=== PATIENT | female | born 1975 | race Caucasian/White ===

== ENCOUNTER → 2016-11-08 | Outpatient (CLI) | payer BC ==
[~2016-11-08] MED LIST: BIOTCAP PO; MULT-65 PO; OXYC1SOL5 PO; VENL75TA PO
--- NOTE | 2016-11-08 15:37 | EKG ---
Date Performed: 11/08/2016 Time Performed: 14:24:11 PTAGE: 41 years EKG: Sinus rhythm WITH SHORT CO INTERVAL BORDERLINE ECG NO PREVIOUS TRACING DOCTOR: Dany Neri Interpretating Date/Time 11/08/2016 15:35:31
== END ==
LOC: CPRE 14:09
PROVIDERS: ATTEND Obstetrics & Gynecology
DX: Z01.812 Encounter for preprocedural laboratory examination (principal); Z01.810 Encounter for preprocedural cardiovascular examination; N92.0 Excessive and frequent menstruation with regular cycle; D50.0 Iron deficiency anemia secondary to blood loss (chronic); R94.31 Abnormal electrocardiogram [ECG] [EKG]
CPT/HCPCS: 93005

== ENCOUNTER → 2016-11-13 | Day surgery (SDC) | payer BC ==
[~2016-11-13] VITALS: Ht 175.3 cm; Wt 57.5 kg
[~2016-11-13] MED LIST changes: +*morphine SULFATE 8 MG/ML PERIprocedure ONLY ONE; +ACETAMINOPHEN 1000 MG/100 ML VIAL IV SCH; +CHLORHEXIDINE GLUCONATE 2 % 1 PACK (2 CLOTHS) TOPICAL PRN; +CLINDAMYCIN 600 MG/NS 100 ML IV SCH; +DO NOT ADM ANY ANTICOAGULANT DRUGS PRN; +INSULIN HUMAN REGULAR 1,000 UNITS/10 ML VIAL SQ PRN; +KETOROLAC TROMETHAMINE 60 MG/2 ML (IM) VIAL IM ONE; +LACTATED RINGER'S 1000 ML IV PRN; +METOCLOPRAMIDE HCL 10 MG/2 ML VIAL IV PRN; +METOPROLOL TARTRATE 25 MG TAB PO PRN; +ONDANSETRON HCL 4 MG/2 ML VIAL IV PUSH ONE; -OXYC1SOL5 PO; +POVIDONE IODINE 5% (ANTISEPSIS KIT) 4 APPLICATIONS EACH NARE PRN; +PROPOFOL 200 MG/20 ML AMP IV ONE; +SODIUM CHLORID 0.9% 500 ML IV PRN; +SODIUM CHLORIDE 0.9% INJ 100 ML ONE; +fentaNYL CITRATE 250 MCG/5 ML AMP ONE; +oxyCODONE/ACETAMINOPHEN 5 MG/325 MG TAB ONE; +oxyCODONE/ACETAMINOPHEN 5 MG/325 MG TAB PO ONE
[2016-11-13 05:56] VITALS: BP 105/72; PULSE 66; RESP 16; TEMP 98.3; O2SAT 100
--- NOTE | 2016-11-13 08:26 | MH ---
cc: LANDON VEGA DATE OF ADMISSION: 11/13/2016 DATE OF 1975 ADMISSION DIAGNOSIS Menorrhagia with anemia. HISTORY OF PRESENT ILLNESS The patient is 41-year-old white female with a date of of 1975. She has had worsening menorrhagia over the last year. She has seen Dr. Breen for evaluation and developed anemia so severe she is requiring infusions. Her cycles are monthly, last for 8-10 days and goes up to 8 pads per day with minimal discomfort. Her pelvic ultrasound from 10/30/2016 showed a uterus that measured 9.7 cm. Her endometrial biopsy from 10/31/2016 was benign. She is now admitted for Novasure ablation. PAST MEDICAL HISTORY 1. She had with tubal July 13, 2015. 2. Her first was in 2009. MEDICATIONS Are: Vitamins. ALLERGIES PENICILLIN. TRANSFUSIONS None. SOCIAL HISTORY She is . Alcohol, tobacco and drugs are none. FAMILY HISTORY Noncontributory. PHYSICAL EXAMINATION GENERAL: This is a well-nourished, well-developed white female. VITAL SIGNS: Stable. HEENT: Exam is normal. CHEST: Clear. HEART: Regular rate. BREASTS: Symmetrical. ABDOMEN: BENIGN. PELVIC: Normal external genitalia and Bartholin's, urethral, and [place]'s. Vagina is normal. Cervix is normal. Uterus normal size and shape. Adnexa nonpalpable. ASSESSMENT As above. She is now admitted for hysteroscopy and Novasure ablation. While in the office I explained the procedures, the risks and complications and the patient would like to proceed. Also advised she may develop additional pathology and could require additional surgery in the future. The patient would like to proceed. MD GABE Retana/ROC /5:08 PM /8:22 AM CHRISTY
[2016-11-13 09:05] VITALS: BP 118/73; PULSE 66; RESP 20; TEMP 98.2; O2SAT 100
--- NOTE | 2016-11-13 13:36 | MP ---
cc: LANDON VEGA DATE OF SURGERY: 11/13/2016 PREOPERATIVE DIAGNOSIS: Menorrhagia with anemia. POSTOPERATIVE DIAGNOSIS: Menorrhagia with anemia. OPERATION: Hysteroscopy and NovaSure ablation. ANESTHESIA General LMA. ESTIMATED BLOOD LOSS: Less than 1 cc FLUIDS: The fluids are 1/2 liter crystalloid. OBJECTIVE FINDINGS Following the induction of adequate general LMA anesthesia the patient was prepped and draped supine on the operating table dorsal lithotomy position, in sterile fashion with the bladder being drained out, with catheterization. Exam under anesthesia revealed normal size shape anterior uterus, no adnexal masses. Heavy weighted speculum placed posterior fornix of the vagina. The anterior lip of the cervix grasped with tenaculum. Cervix sounded to 2.5 cm internal os and 9 at the fundus with the soft dilator. The cervix is dilated to #19 Hanks dilator. The NovaSure's wand was then deployed for a cavity length of 6.5 cm. The cavity width a 4.6 cm cms. The cavity test was then done and enabled. When complete the wand was withdrawn intact. The hysteroscope was passed confirmed a completion of the procedure, the cervix tenaculum sutured 2-0 chromic, all instruments were removed, all counts correct. The patient taken out of the [facility]. She is awakened and taken to the Recovery Room, in good condition. MD GABE Retana/cesar /7:30 AM /1:28 PM
== END | disposition home or self-care (01) ==
LOC: HSDC 05:14
PROVIDERS: ATTEND Obstetrics & Gynecology
DX: N92.0 Excessive and frequent menstruation with regular cycle (principal); D64.9 Anemia, unspecified; F32.9 Major depressive disorder, single episode, unspecified
CPT/HCPCS: 00952; 58563; J0131; J1885; J2270; J2405; J3010; J7120